=== PATIENT | male | born 1950 | race Caucasian/White ===

== ENCOUNTER 2021-02-06 06:26 | Day surgery (SDC) | payer MEDICARE, SELFPAY ==
[2021-01-30 10:30] VITALS: BMI 31.4
--- NOTE | 2021-02-02 13:33 | MHC.SHP ---
Pre-Procedural Eval Section A Date of Service: 02/02/21 The patient is an INPATIENT: No Changes since office visit: No Cold of Flu in the past 2 weeks, No New Medical Problems, No Changes in Medication and No Patient answered all questions The History & Physical has been completed within 30 days and I have reviewed it.: Yes Section B Chief Complaint: cataract Allergies: Allergies Allergy/AdvReac Type Severity Reaction Status Date / Time mushroom Allergy Mild RASH Unverified 01/30/21 10:30 Penicillins Allergy Mild HIVES Unverified 01/30/21 10:30 Plan Diagnosis/Plan: Unchanged I have reviewed the history and physical and performed a pertinent physical examination on my patient. No changes have occurred unless specified.
--- NOTE | 2021-02-03 13:14 | P.CONAN_ITS ---
Documented by User: Catalina Manley NP 02/03/21 13:14 HPI - Anesthesia Eval Consult details Narrative: 70yo M for Right Cataract Extraction IOL Insertion PCP cleared No prev cataract on record [facility] Past Medical History Medical History (Updated 01/30/21 @ 10:33 by Roro Turpin, RN) CAD (coronary artery disease) COVID-19 vaccine series completed Diabetes Elevated cholesterol Myocardial infarction On beta dank at home Surgical History Surgical History (Updated 01/05/21 @ 08:44 by Roro Turpin, RN) Hx of cholecystectomy Hx of colonoscopy Social History Social History Are you a primary career services assistant to a significant other at home: No Do you presently have visiting nurse or other home services: No (Daughter stops QOD to visit) Patient Tobacco Use Status: Former Tobacco user Quit Date: 3 yrs ago Tobacco use type: Cigarette Second Hand Smoke Exposure: No Use of substances other than those prescribed or required for medical reasons: No Have you been hit, kicked, punched, or otherwise hurt by someone within the past year? If so, by whom?: No Are you DNR?: No Advance Directives: No Advance Directives Information Provided: No Advance Directives on File: No Recently lost weight without trying: No Eating poorly because of decreased appetite: No Nutrition Risks: No Nutritional Risk Meds Allergies Allergy/AdvReac Type Severity Reaction Status Date / Time mushroom Allergy Mild RASH Verified 02/06/21 07:42 Penicillins Allergy Mild HIVES Verified 02/06/21 07:42 Home Medications Medication Instructions Recorded Confirmed Last Taken Type glipizide 10 mg tablet 1 tab PO BID 01/05/21 01/05/21 Unknown History hydrochlorothiazide 25 mg tablet 1 tab PO DAILY 01/05/21 01/05/21 Unknown History insulin detemir U-100 100 unit/mL 70 unit SUBCUT BEDTIME 01/05/21 02/06/21 02/05/21 06:45 History (3 mL) subcutaneous pen (Levemir 35 units FlexTouch U-100 Insulin) lisinopril 20 mg tablet 1 tab PO DAILY 01/05/21 01/05/21 Unknown History metformin 1,000 mg tablet 1 tab PO DAILY 01/05/21 02/06/21 Unknown History metoprolol succinate 25 mg 1 tab PO BID 01/05/21 02/06/21 02/06/21 04:45 History tablet,extended release 24 hr simvastatin 40 mg tablet 1 tab PO BEDTIME 01/05/21 01/05/21 Unknown History aspirin 81 mg tablet,delayed 81 mg PO DAILY 01/30/21 02/06/21 02/05/21 History release Exam Exam Date and Time: February 03, 2021 1314 Height,Weight and Vital Signs: Height 6 ft 1 in Weight 107.955 kg Assessment and Plan Assessment Anesthesia Assessment: Chart Reviewed Documented by User: Sherif Burton MD 02/06/21 08:13 [facility] Past Medical History Medical History (Updated 01/30/21 @ 10:33 by Roro Turpin RN) CAD (coronary artery disease) COVID-19 vaccine series completed Diabetes Elevated cholesterol Myocardial infarction On beta dank at home Family History Family history of problems with anesthesia: No Surgical History Surgical History (Updated 01/05/21 @ 08:44 by Roro Turpin RN) Hx of cholecystectomy Hx of colonoscopy History of Problems with Anesthesia: No Social History Social History Are you a primary career services assistant to a significant other at home: No Do you presently have visiting nurse or other home services: No (Daughter stops QOD to visit) Patient Tobacco Use Status: Former Tobacco user Quit Date: 3 yrs ago Tobacco use type: Cigarette Second Hand Smoke Exposure: No Use of substances other than those prescribed or required for medical reasons: No Have you been hit, kicked, punched, or otherwise hurt by someone within the past year? If so, by whom?: No Are you DNR?: No Advance Directives: No Advance Directives Information Provided: No Advance Directives on File: No Recently lost weight without trying: No Eating poorly because of decreased appetite: No Nutrition Risks: No Nutritional Risk Meds Allergies Allergy/AdvReac Type Severity Reaction Status Date / Time mushroom Allergy Mild RASH Verified 02/06/21 07:42 Penicillins Allergy Mild HIVES Verified 02/06/21 07:42 Home Medications Medication Instructions Recorded Confirmed Last Taken Type glipizide 10 mg tablet 1 tab PO BID 01/05/21 01/05/21 Unknown History hydrochlorothiazide 25 mg tablet 1 tab PO DAILY 01/05/21 01/05/21 Unknown Hist ory insulin detemir U-100 100 unit/mL 70 unit SUBCUT BEDTIME 01/05/21 02/06/21 02/05/21 06:45 History (3 mL) subcutaneous pen (Levemir 35 units FlexTouch U-100 Insulin) lisinopril 20 mg tablet 1 tab PO DAILY 01/05/21 01/05/21 Unknown History metformin 1,000 mg tablet 1 tab PO DAILY 01/05/21 02/06/21 Unknown History metoprolol succinate 25 mg 1 tab PO BID 01/05/21 02/06/21 02/06/21 04:45 History tablet,extended release 24 hr simvastatin 40 mg tablet 1 tab PO BEDTIME 01/05/21 01/05/21 Unknown History aspirin 81 mg tablet,delayed 81 mg PO DAILY 01/30/21 02/06/21 02/05/21 History release Exam Airway Mallampati Class: II TM Dist: >3cm Neck ROM: Full Denture: Upper and Lower Heart: [id number] Lungs: cta b/l Assessment and Plan Assessment Anesthesia Assessment: Anesthesia Plan Discussed Final Anesthetic Review Family History of Problems with Anesthesia: No History of Problems with Anesthesia: No NPO: Yes ASA Class: III Final Preanesthetic Review: No Changes in Pt Med Stat, Meds/Allgs Chart Reviewed, Consent Obtained/Reviewed and Anes Risks/Benef Reviewed Patient Risk: Intermediate Procedure Risk: Low Assessment/Block/Sedation in SS: Assess/Block/Sedation-SS Anesthetic Plan Anesthetic Plan: MAC: and Agree w/ Assess. and Plan Disposition: Standard PACU
[2021-02-06 07:43] VITALS: BP 143/57; PULSE 60; RESP 16; TEMP 36.5; O2SAT 96
[2021-02-06 07:50] VITALS: BMI 27.9
[2021-02-06 07:54] LABS: Glucose, Whole Blood 328 mg/dL (60-115)
[2021-02-06] MEDS: Tetracaine HCl/PF 0.5% Oph Sol 4 ML DROPS 1 DROP EYE-RIGHT (07:58)
[2021-02-06] MEDS: Tropicamide 1 % Ophth Sol 3 ML BTL 1 DROP EYE-RIGHT ×3 (08:00→08:10)
[2021-02-06] MEDS: Phenylephrine HCL 2.5% Oph SoL 2 ML BOTTLE 1 DROP EYE-RIGHT ×3 (08:04→08:12)
--- NOTE | 2021-02-06 08:49 | HO.PNOPHT ---
Ophthalmology Procedure Procedure Date of Service: 02/06/21 Ophthalmology Viscoelastic: Healon Duet Dual Pack Pro Ophthalmology Lenses: TECNIS [id number] (18.5) Procedure Notes: PREOPERATIVE DIAGNOSIS: Decreased visual acuity right eye secondary to cataract POSTOPERATIVE DIAGNOSIS: Same PROCEDURE: Right cataract extraction with intraocular lens insertion SURGEON: Danilo Green M.D. ANESTHESIA: Topical/MAC ESTIMATED BLOOD LOSS: None COMPLICATIONS: None After obtaining informed consent, the patient was brought to the operating room suite and placed in the supine position. After adequate sedation per anesthesia, topical drops of Tetracaine were given to the right eye. The eye was then prepped and draped in the usual sterile fashion. The operating room microscope was then positioned over the operative eye and a lid speculum placed. A paracentesis was created. Viscoelastic was then instilled into the anterior chamber. A three plane incision was then created temporally, utilizing a 2.85 mm keratome. Capsulotomy forceps were then utilized to create a circular tear capsulotomy. Hydrodissection and hydrodelineation were carried out until adequate mobilization of the nucleus occurred. Phacoemulsification was then utilized to remove the dense central nucleus followed by removal of the cortical material utilizing the automated aspiration irrigation unit. Viscoelastic was instilled into the posterior capsular bag followed by placement of a posterior chamber intraocular lens without difficulty. The residual Viscoelastic was then removed utilizing the automated IA machine. The wound was checked and found to be watertight. The patient tolerated the procedure well and the lid speculum was removed. Intracameral injection of Vigamox 0.1 mL followed by a subtenon injection of Kenalog-40 0.2 mL were administered. The patient will be seen in the a.m.
[2021-02-06 09:17] VITALS: BP 142/65; PULSE 58; RESP 15; TEMP 36.4; O2SAT 98
== END 2021-02-06 09:31 | disposition home or self-care (01) ==
PROVIDERS: PCP Student in an Organized Health Care Education/Training Program; Visit Provider Ophthalmology
PROC: (CPT 66985; principal; 2021-02-06 08:40)
DX: H25.11 Age-related nuclear cataract, right eye (principal); H52.4 Presbyopia; H40.013 Open angle with borderline findings, low risk, bilateral; H35.033 Hypertensive retinopathy, bilateral; E11.3291 Type 2 diabetes mellitus with mild nonproliferative diabetic retinopathy without macular edema, right eye; E78.00 Pure hypercholesterolemia, unspecified; I10 Essential (primary) hypertension; I25.2 Old myocardial infarction; Z79.4 Long term (current) use of insulin; Z79.899 Other long term (current) drug therapy; Z79.82 Long term (current) use of aspirin; Z88.0 Allergy status to penicillin; Z87.891 Personal history of nicotine dependence
CPT/HCPCS: 66984; 82947; J2250; J3010; J3300; V2632

== ENCOUNTER 2022-01-22 08:55 | Day surgery (SDC) | payer MEDICARE, SELFPAY ==
[2022-01-16 12:55] VITALS: BMI 28.5
--- NOTE | 2022-01-18 15:30 | MHC.SHP ---
Pre-Procedural Eval Section A Date of Service: 01/18/22 The patient is an INPATIENT: No Changes since office visit: No Cold of Flu in the past 2 weeks, No New Medical Problems, No Changes in Medication and No Patient answered all questions The History & Physical has been completed within 30 days and I have reviewed it.: Yes Section B Chief Complaint: Age-related nuclear cataract, left eye Allergies: Allergies Allergy/AdvReac Type Severity Reaction Status Date / Time mushroom Allergy Mild RASH Verified 01/16/22 12:58 Penicillins Allergy Mild HIVES Verified 01/16/22 12:58 Plan Diagnosis/Plan: Unchanged I have reviewed the history and physical and performed a pertinent physical examination on my patient. No changes have occurred unless specified.
--- NOTE | 2022-01-19 13:11 | P.CONAN_ITS ---
Documented by User: Catalina Manley NP 01/19/22 13:13 HPI - Anesthesia Eval Consult details Narrative: 71yo M for Left Cataract Extraction IOL Insertion PCP cleared Right eye 02/2021 with MAC: fent 50, midaz 1 PMFSH Past Medical History Medical History CAD (coronary artery disease) COVID-19 vaccine series completed Diabetes Elevated cholesterol Myocardial infarction On beta dank at home Family History Family history of problems with anesthesia: No Surgical History Surgical History Hx of cholecystectomy Hx of colonoscopy Hx of right cataract extraction History of Problems with Anesthesia: No Social History Social History Are you a primary outdoor emergency care technician to a significant other at home: No Do you presently have visiting nurse or other home services: No Patient Tobacco Use Status: Former Tobacco user Quit Date: 2017 Tobacco use type: Cigarette Second Hand Smoke Exposure: No Use of substances other than those prescribed or required for medical reasons: No Have you been hit, kicked, punched, or otherwise hurt by someone within the past year? If so, by whom?: No Are you DNR?: No Advance Directives: No Advance Directives Information Provided: Yes Advance Directives on File: No Recently lost weight without trying: No Eating poorly because of decreased appetite: No Nutrition Risks: No Nutritional Risk Meds Allergies Allergy/AdvReac Type Severity Reaction Status Date / Time mushroom Allergy Mild RASH Verified 01/22/22 10:22 Penicillins Allergy Mild HIVES Verified 01/16/22 12:58 Home Medications Medication Instructions Recorded Confirmed Last Taken Type glipizide 10 mg tablet 1 tab PO BID 01/05/21 12/29/21 Unknown History hydrochlorothiazide 25 mg tablet 1 tab PO DAILY 01/05/21 12/29/21 Unknown History insulin detemir U-100 100 unit/mL 70 unit subcut BEDTIME 01/05/21 12/29/21 02/05/21 06:45 History (3 mL) subcutaneous pen (Levemir 35 units FlexTouch U-100 Insulin) lisinopril 20 mg tablet 1 tab PO DAILY 01/05/21 12/29/21 Unknown History metformin 1,000 mg tablet 1 tab PO DAILY 01/05/21 12/29/21 Unknown History metoprolol succinate 25 mg 1 tab PO BID 01/05/21 12/29/21 02/06/21 04:45 History tablet,extended release 24 hr simvastatin 40 mg tablet 1 tab PO BEDTIME 01/05/21 12/29/21 Unknown History aspirin 81 mg tablet,delayed 81 mg PO DAILY 01/30/21 12/29/21 02/05/21 History release dulaglutide 0.75 mg/0.5 mL mg subcut 12/29/21 Unknown History subcutaneous pen injector (Trulicity) levothyroxine 88 mcg tablet 1 tab PO DAILY 12/29/21 12/29/21 Unknown History Exam Exam Date and Time: January 19, 2022 1311 Height,Weight and Vital Signs: Height 6 ft 1 in Weight 97.976 kg Assessment and Plan Assessment Anesthesia Assessment: Chart Reviewed Final Anesthetic Review Family History of Problems with Anesthesia: No History of Problems with Anesthesia: No Documented by User: Sherif Burton MD 01/22/22 10:59 [facility] Past Medical History Medical History CAD (coronary artery disease) COVID-19 vaccine series completed Diabetes Elevated cholesterol Myocardial infarction On beta dank at home Surgical History Surgical History Hx of cholecystectomy Hx of colonoscopy Hx of right cataract extraction Social History Social History Are you a primary outdoor emergency care technician to a significant other at home: No Do you presently have visiting nurse or other home services: No Patient Tobacco Use Status: Former Tobacco user Quit Date: 2017 Tobacco use type: Cigarette Second Hand Smoke Exposure: No Use of substances other than those prescribed or required for medical reasons: No Have you been hit, kicked, punched, or otherwise hurt by someone within the past year? If so, by whom?: No Are you DNR?: No Advance Directives: No Advance Directives Information Provided: Yes Advance Directives on File: No Recently lost weight without trying: No Eating poorly because of decreased appetite: No Nutrition Risks: No Nutritional Risk Meds Allergies Allergy/AdvReac Type Severity Reaction Status Date / Time mushroom Allergy Mild RASH Verified 01/22/22 10:22 Penicillins Allergy Mild HIVES Verified 01/16/22 12:58 Home Medications Medication Instructions Recorded Confirmed Last Taken Type glipizide 10 mg tablet 1 tab PO BID 01/05/21 12/29/21 Unknown History hydrochlorothiazide 25 mg tablet 1 tab PO DAILY 01/05/21 12/29/21 Unknown History insulin detemir U-100 100 unit/mL 70 unit subcut BEDTIME 01/05/21 12/29/21 02/05/21 06:45 History (3 mL) subcutaneous pen (Levemir 35 units FlexTouch U-100 Insulin) lisinopril 20 mg tablet 1 tab PO DAILY 01/05/21 12/29/21 Unknown History metformin 1,000 mg tablet 1 tab PO DAILY 01/05/21 12/29/21 Unknown History metoprolol succinate 25 mg 1 tab PO BID 01/05/21 12/29/21 02/06/21 04:45 History tablet,extended release 24 hr simvastatin 40 mg tablet 1 tab PO BEDTIME 01/05/21 12/29/21 Unknown History aspirin 81 mg tablet,delayed 81 mg PO DAILY 01/30/21 12/29/21 02/05/21 History release dulaglutide 0.75 mg/0.5 mL mg subcut 12/29/21 Unknown History subcutaneous pen injector (Trulicity) levothyroxine 88 mcg tablet 1 tab PO DAILY 12/29/21 12/29/21 Unknown History Exam Airway Mallampati Class: II TM Dist: >3cm Neck ROM: Full Denture: Upper and Lower Heart: rrr+s1s2 Lungs: cta b/l Assessment and Plan Assessment Anesthesia Assessment: Anesthesia Plan Discussed Final Anesthetic Review NPO: Yes ASA Class: III Final Preanesthetic Review: No Changes in Pt Med Stat, Meds/Allgs Chart Reviewed, Consent Obtained/Reviewed and Anes Risks/Benef Reviewed Patient Risk: Intermediate Procedure Risk: Low Assessment/Block/Sedation in SS: Assess/Block/Sedation-SS Anesthetic Plan Anesthetic Plan: MAC: and Agree w/ Assess. and Plan Disposition: Standard PACU
[2022-01-22] MEDS: Tetracaine HCl/PF 0.5% Oph Sol 4 ML DROPS 1 DROP EYE-LEFT (10:37)
[2022-01-22 10:39] LABS: Glucose, Whole Blood 309 mg/dL (60-115)
[2022-01-22] MEDS: Cyclopentolate 1 % Ophth Sol 2 ML DRPBTL 1 DROP EYE-LEFT ×3 (10:39→10:51)
[2022-01-22 10:40] VITALS: BP 147/67; PULSE 64; RESP 18; TEMP 36.3; O2SAT 95
[2022-01-22] MEDS: Tropicamide 1 % Ophth Sol 3 ML BTL 1 DROP EYE-LEFT ×3 (10:40→10:53)
[2022-01-22] MEDS: Ketorolac Tromethamine 0.5% Op 5 ML DROPS 1 DROP EYE-LEFT ×3 (10:42→10:54)
[2022-01-22] MEDS: Phenylephrine HCL 2.5% Oph SoL 2 ML BOTTLE 1 DROP EYE-LEFT ×3 (10:44→10:55)
[2022-01-22] MEDS: Lactated Ringers 500 ML 50 ML IV (11:45)
--- NOTE | 2022-01-22 12:15 | HO.PNOPHT ---
Ophthalmology Procedure Procedure Date of Service: 01/22/22 Ophthalmology Viscoelastic: Heallyle Duet Dual Pack Pro Ophthalmology Lenses: TECWARREN [id number] (19) Procedure Notes: PREOPERATIVE DIAGNOSIS: Decreased visual acuity left eye secondary to cataract POSTOPERATIVE DIAGNOSIS: Same PROCEDURE: Left cataract extraction with intraocular lens insertion SURGEON: Danilo Green M.D. ANESTHESIA: Topical/MAC ESTIMATED BLOOD LOSS: None COMPLICATIONS: None After obtaining informed consent, the patient was brought to the operation room suite and placed in the supine position. After adequate sedation per anesthesia, topical drops of Tetracaine were given to the left eye. The eye was then prepped and draped in the usual sterile fashion. The operating room microscope was then positioned over the operative eye and a lid speculum placed. A paracentesis was created. Viscoelastic was then instilled into the anterior chamber. A three plane incision was then created temporally, utilizing a 2.85 mm keratome. Capsulotomy forceps were then utilized to create a circular tear capsulotomy. Hydrodissection and hydrodelineation were carried out until adequate mobilization of the nucleus occurred. Phacoemulsification was then utilized to remove the dense central nucleus followed by removal of the cortical material utilizing the automated aspiration irrigation unit. Viscoat elastic was instilled into the posterior capsular bag followed by placement of a posterior chamber intraocular lens without difficulty. The residual Viscoat elastic was then removed utilizing the automated IA machine. The wound was check and found to be watertight. The patient tolerated the procedure well and the lid speculum was removed. A drop of Ocufloxcin was given followed by a subtenon injection of Kenalog-40 0.2 mL were administered. The patient will be seen in the a.m.
[2022-01-22 12:59] VITALS: BP 133/59; PULSE 69; RESP 16; TEMP 36.6; O2SAT 97
== END 2022-01-22 13:03 ==
LOC: HO.SSS 08:55
PROVIDERS: PCP Student in an Organized Health Care Education/Training Program; Visit Provider Ophthalmology
PROC: (CPT 66985; principal; 2022-01-22 11:20)
DX: H25.12 Age-related nuclear cataract, left eye (principal); H52.4 Presbyopia; H40.013 Open angle with borderline findings, low risk, bilateral; H35.033 Hypertensive retinopathy, bilateral; D31.31 Benign neoplasm of right choroid; E78.00 Pure hypercholesterolemia, unspecified; I10 Essential (primary) hypertension; E10.9 Type 1 diabetes mellitus without complications; Z79.4 Long term (current) use of insulin; Z79.899 Other long term (current) drug therapy; Z79.82 Long term (current) use of aspirin; Z88.0 Allergy status to penicillin; Z87.891 Personal history of nicotine dependence
CPT/HCPCS: 66984; 82947; J2250; J3300; V2632

== ENCOUNTER 2022-10-30 12:45 | Outpatient (RCR) | payer MEDICARE, SELFPAY | END 2022-11-13 16:00 | disposition home or self-care (01) | LOC: HO.WCC 12:45 | PROVIDERS: PCP Student in an Organized Health Care Education/Training Program; Visit Provider Physician Assistant | DX: E11.621 Type 2 diabetes mellitus with foot ulcer (principal); L97.512 Non-pressure chronic ulcer of other part of right foot with fat layer exposed; L30.9 Dermatitis, unspecified; I10 Essential (primary) hypertension | CPT/HCPCS: 11042; 99212 ==